=== PATIENT | female | born 1980 | race Caucasian/White ===

== ENCOUNTER 2019-01-14 23:57 | Emergency (ER) | payer OTHER ==
[~2019-01-14] VITALS: Ht 152.4 cm; Wt 80.7 kg
[2019-01-15 00:01] VITALS: BP 144/88
[2019-01-15 00:19] VITALS: BP 144/88
[2019-01-15] MEDS ORDERED: PREDNISONE PO STA (00:38)
[2019-01-15] MEDS ORDERED: BACTRIM DS PO STA (00:38)
[2019-01-15] MEDS ORDERED: BACTRIM DS ONE (00:45)
[2019-01-15] MEDS ORDERED: PREDNISONE ONE (00:46)
--- NOTE | 2019-01-15 00:49 | ER.PDOC ---
General Chief Complaint: Extremities Stated Complaint: POSS SPIDER BITE Time seen by MD: 00:41 Source: patient Exam Limitations: no limitations History of Present Illness Initial Comments Possible insect bite to left thigh 2-3 days ago Severity: moderate Location: LLE Quality: painful Identified Cause: possibly Allergies: Coded Allergies: No Known Allergies (Unverified , 11/05/18) Past Medical History Medical History: thyroid disease, other Surgical History: LMP (females 10-50): 3 weeks Social History Smoking: non-smoker Alcohol Use: occassionally Drug Use: none Constitutional: no symptoms reported Respiratory: no symptoms reported Cardiovascular: no symptoms reported Gastrointestinal: no symptoms reported Skin: see HPI All Other Systems: Reviewed and Negative Physical Exam General Appearance: alert, no distress Skin: tender indurated area, with erythema Location: LLE (mid posterior thigh) With: warmth, tenderness, swelling, inflammation 1 - redness, erytherma, inflammed Neck: trachea midline, no swelling Respiratory: no resp. distress, breath sounds nml CVS: reg. rate & rhythm, heart sounds nml Abdomen: non-tender, no organomegaly NEURO/PSYCH: oriented x 3, CN's nml as tested, motor nml, sensation nml, mood/affect nml Incision and Drainage Incision and Drainage : Site: left thigh Blade Size: 11 I & D Procedure: betadine prep, sterile dressing applied, gauze wick placed, irrigated cavity w/saline, culture/gram stain Results/Orders Results/Orders Orders - WEN STINSON MD Sulfamethoxazole/Trimethoprim (Bactrim D (01/15/19 00:38) Prednisone (Prednisone) (01/15/19 00:38) Sulfamethoxazole/Trimethoprim (Bactrim D (01/15/19 00:45) Prednisone (Prednisone) (01/15/19 00:46) Cbc With Auto Diff (01/15/19 00:48) Comprehensive Metabolic Panel (01/15/19 00:48) Blood Culture (01/15/19 00:48) Lidocaine Hcl (Lidocaine 1% Vial) (01/15/19 02:07) Neomycin/Bacitracin/Polymyxinb (Triple A (01/15/19 02:07) Vital Signs Date Time Temp Pulse Resp B/P (MAP) Pulse Ox O2 Delivery O2 Flow Rate FiO2 01/15/19 00:19 98.1 104 16 144/88 (106) 96 Room Air 01/15/19 00:01 98.1 104 16 01/15/19 00:01 98.1 104 16 96 Room Air Administered Medications Medications (Trade) Dose Ordered Sig/Claire Route PRN Reason Start Time Stop Time Status Last Admin Dose Admin Prednisone (Prednisone) 40 mg STAT STAT PO 01/15/19 00:38 01/15/19 00:39 DC 01/15/19 00:49 40 MG Trimethoprim/ Sulfamethoxazole (Bactrim Ds) 1 each STAT STAT PO 01/15/19 00:38 01/15/19 00:39 DC 01/15/19 00:49 1 EACH Laboratory Tests Test 01/15/19 01:10 White Blood Count 13.3 10^3/uL (4.5-11.0) H Red Blood Count 4.29 10^6/uL (4.00-5.20) Hemoglobin 12.7 g/dL (12.0-15.0) Hematocrit 37.8 % (36.0-46.0) Mean Corpuscular Volume 88.1 fL (78-100) Mean Corpuscular Hemoglobin 29.6 pg (26-34) Mean Corpuscular Hemoglobin Concent 33.6 g/dL (33-37) Red Cell Distribution Width 13.2 % (11.5-14.5) Platelet Count 296 10^3/uL (150-400) Mean Platelet Volume 9.8 fL (7.8-11.0) Neutrophils (%) (Auto) 76.9 % (41.0-85.0) Lymphocytes (%) (Auto) 10.9 % (24.0-44.0) L Monocytes (%) (Auto) 8.6 % (5.0-12.0) Neutrophils # (Auto) 10.2 10^3/uL (1.8-7.7) H Lymphocytes # (Auto) 1.5 10^3/uL (1.0-4.8) Monocytes # (Auto) 1.2 10^3/uL (0.3-0.8) H Absolute Immature Granulocyte (auto 0.04 10^3 u/L (0-2) Immature Granulocytes % 0.30 % (0.00-0.50) Eosinophils % 2.9 % (0.0-5.0) Basophils % 0.4 % (0.0-0.2) H Basophils # 0.1 10^3/uL (0.0-0.1) Eosinophil Count 0.4 10^3/uL (0.0-0.2) H Sodium Level 142 mmol/L (132-145) Potassium Level 3.8 mmol/L (3.6-5.2) Chloride Level 107.0 mmol/L (96-109) Carbon Dioxide Level 24.4 mmol/L (20.0-32) Anion Gap 14.4 Blood Urea Nitrogen 11 mg/dL (7-18) Creatinine 0.73 mg/dL (0.59-1.40) Estimated GFR () 107.4 (>/=60) BUN/Creatinine Ratio 15.0 Glucose Level 111 mg/dL (70-110) H Calcium Level 8.8 mg/dL (8.4-10.5) Total Bilirubin 0.4 mg/dL (0.2-1.0) Aspartate Amino Transferase (AST) 13 U/L (0-35) Alanine Aminotransferase (ALT) 22 U/L (12-78) Alkaline Phosphatase 78 U/L (50-136) Total Protein 6.8 g/dL (6.4-8.2) Albumin 3.4 g/dL (3.4-5.0) Globulin 3.4 Departure Time of Disposition: 00:43 Disposition: 01 HOME, SELF-CARE Impression: Primary Impression: Abscess or cellulitis of thigh Additional Impression: Insect bite Condition: Stable Referrals: PCP,UNKNOWN (PCP) PRIMARY CARE PROVIDER Additional Instructions: Bactrim DS Return tomorrow for dressing change Duration or Time Spent with Pa: 45 mins Problem Qualifiers Additional Impression: Insect bite Encounter type: initial encounter Site of insect bite: thigh Laterality: left Qualified Codes: S70.362A - Insect bite (nonvenomous), left thigh, initial encounter; W57.XXXA - Bitten or stung by nonvenomous insect and other nonvenomous arthropods, initial encounter WEN STINSON MD Jan 15, 2019 00:49
[2019-01-15 01:15] LABS: BASOPHIL # 0.1 10^3/uL (0.0-0.1); BASOPHIL % 0.4 % (0.0-0.2); EOSINOPHIL # 0.4 10^3/uL (0.0-0.2); EOSINOPHIL % 2.9 % (0.0-5.0); HEMOGLOBIN 12.7 g/dL (12.0-15.0); LYMPHOCYTES # 1.5 10^3/uL (1.0-4.8); LYMPHOCYTES % 10.9 % (24.0-44.0); MEAN CELL HGB 29.6 pg (26-34); MEAN CELL HGB CONCENTRATION 33.6 g/dL (33-37); MEAN CORP VOLUME 88.1 fL (78-100); MEAN PLATELET VOLUME 9.8 fL (7.8-11.0); MONOCYTES # 1.2 10^3/uL (0.3-0.8); MONOCYTES % 8.6 % (5.0-12.0); NEUTROPHIL # 10.2 10^3/uL (1.8-7.7); NEUTROPHILS % 76.9 % (41.0-85.0); RED CELL DISTRIBUTION WIDTH 13.2 % (11.5-14.5); WHITE BLOOD CELL 13.3 10^3/uL (4.5-11.0)
[2019-01-15 01:30] LABS: CALCIUM 8.8 mg/dL (8.4-10.5); CARBON DIOXIDE 24.4 mmol/L (20.0-32)
[2019-01-15] MEDS ORDERED: LIDOCAINE 1% VIAL ONE (02:07)
[2019-01-15] MEDS ORDERED: TRIPLE ANTIBIOTIC OINTMENT TP ONE (02:07)
--- NOTE | 2019-01-15 02:23 | NUR ---
DRESSING BEE STERILE GAUZE SECURED TO SITE WITH TAPE POST I & D OF WOUND. PT TOLERATED WELL.
== END 2019-01-15 02:31 | disposition home or self-care (01) ==
LOC: ER 23:57
DX: S70.362A Insect bite (nonvenomous), left thigh, initial encounter (principal); L03.116 Cellulitis of left lower limb; L02.416 Cutaneous abscess of left lower limb; W57.XXXA Bitten or stung by nonvenomous insect and other nonvenomous arthropods, initial encounter; Y93.89 Activity, other specified; Y92.89 Other specified places as the place of occurrence of the external cause; Y99.8 Other external cause status
CPT/HCPCS: 10060; 36415; 80053; 85025; 87040 ×2; 87070; 87077; 87186; 99284; J2001; J7512; 99283

== ENCOUNTER 2019-01-15 19:11 | Emergency (ER) | payer OTHER ==
[~2019-01-15] VITALS: Ht 162.6 cm; Wt 68.0 kg
[2019-01-15 19:24] VITALS: BP 176/94
[2019-01-15 19:28] VITALS: BP 176/94
[2019-01-15] MEDS ORDERED: TYLENOL PO STA (19:40)
[2019-01-15] MEDS ORDERED: TETANUS DIPHTHERIA TOXOIDS IM STA (19:40)
--- NOTE | 2019-01-15 19:42 | ER.PDOC ---
General Chief Complaint: Wound Recheck/Suture Removal Stated Complaint: WOUND CHECK Time seen by MD: 19:38 Source: patient Exam Limitations: no limitations History of Present Illness Allergies: Coded Allergies: No Known Allergies (Unverified , 11/05/18) Past Medical History Medical History: other (rheumatoid arthritis NOT on immunomodulators) Surgical History: Social History Smoking: non-smoker Alcohol Use: occassionally Drug Use: none All Other Systems: Reviewed and Negative Physical Exam General Appearance: alert Comments Left posterior thigh: no fluctuance appreciated, mild erythema/edema, mild TTP, no purulent discharge, area demarcated/dated w/ extension of erythema BEYOND demarcation, no lymphangitic streaking, wound packing dangling, no bleeding Results/Orders Results/Orders Orders - SANDIE CHARLTON MD Tetanus, Diphtheria Tox,Adult (Tetanus D (01/15/19 19:40) Acetaminophen (Tylenol) (01/15/19 19:40) Naproxen (Naproxen) (01/15/19 20:00) Diph,Pertuss(Acell),Tet Vac/Pf (Adacel V (01/15/19 19:43) Acetaminophen (Tylenol) (01/15/19 19:53) Naproxen (Naproxen) (01/15/19 19:54) Vital Signs Date Time Temp Pulse Resp B/P (MAP) Pulse Ox O2 Delivery O2 Flow Rate FiO2 01/15/19 19:28 98.4 88 16 176/94 (121) 98 Room Air 01/15/19 19:24 98.4 88 16 01/15/19 19:24 98.4 88 16 98 Room Air Administered Medications Medications (Trade) Dose Ordered Sig/Claire Route PRN Reason Start Time Stop Time Status Last Admin Dose Admin Acetaminophen (Tylenol) 1,000 mg STAT STAT PO 01/15/19 19:40 01/15/19 19:42 DC 01/15/19 19:52 1,000 MG Naproxen (Naproxen) 500 mg OT ONCE PO 01/15/19 20:00 01/15/19 20:01 DC 01/15/19 19:53 500 MG Course Sepsis Screening Results: Posi: POSITIVE SEPSIS RISK DATE SEEN BY PHYSICIAN: Jan 15, 2019 TIME SEEN BY PROVIDER: 19:00 Duration or Total Time Spent w: mins Vitals & review Data Vital Sign - Last 24 Hours 01/15/19 01/15/19 01/15/19 19:24 19:24 19:28 Temp 98.4 98.4 98.4 Pulse 88 88 88 Resp 16 16 16 B/P (MAP) 176/94 (121) Pulse Ox 98 98 O2 Delivery Room Air Room Air Sepsis Infection Criteria Pres: Suspected Infection O2 Sat by Pulse Oximetry: 98 Findings Pt findings consistent w/ wound re-packing, left posterior thigh cellulitis, failure outpatient treatment, or other. Examined the wound and pulled out previous packing and replaced with iodoform. Discussed the current TMP/SMX regimen and just started antibiosis. Discussed sensitive v. resistant and the possibility that bacteria are resistant to the TMP/SMX. Given iodoform and suture kit for home for to replace the packing q 24 hours. Given analgesics and tetanus booster as she is not currently up to date on same. Discharged home in good condition to f/u her primary as needed. Departure Time of Disposition: 19:48 Disposition: 01 HOME, SELF-CARE Impression: Primary Impression: Wound check, abscess Condition: Stable Referrals: YOVANI GARCIA (PCP) PRIMARY CARE PROVIDER Duration or Time Spent with Pa: 10 Return to Work/School Can a patient return to work?: Yes Can a patient return to school: Yes SANDIE CHARLTON MD Jan 15, 2019 19:42
[2019-01-15] MEDS ORDERED: ADACEL VIAL IM ONE (19:43)
[2019-01-15] MEDS ORDERED: TYLENOL PO ONE (19:53)
[2019-01-15] MEDS ORDERED: NAPROXEN PO ONE ×2 (19:54→20:00)
== END 2019-01-15 20:06 | disposition home or self-care (01) ==
LOC: ER 19:11
DX: L03.116 Cellulitis of left lower limb (principal)
CPT/HCPCS: 90471; 90714; 99283; A9150; 90715

== ENCOUNTER 2020-02-28 14:24 | Emergency (ER) | payer OTHER ==
[~2020-02-28] VITALS: Ht 152.4 cm; Wt 90.7 kg
[2020-02-28 14:38] VITALS: BP 163/104
--- NOTE | 2020-02-28 14:43 | NUR ---
ARRIVAL PATIENT ARRIVED TO [facility], C/O OF LEFT UPPER POSTERIOR THIGH POSSIBLE SPIDER BITE, WAS RECENTLY SEEN BY DOCTOR MADAY AND GIVEN CLINDAMYCIN X2 DAYS AGO, WENT TO SEE MADAY AGAIN TODAY AND WAS TOLD SHE WOULD HAVE TO PAY A DOCTOR'S VISIT, INSTEAD OF PAYING SHE CAME TO THE ED FOR EVAL. DOCTOR SHANTELL TO THE ROOM TO SEE PATIENT.
[2020-02-28] MEDS ORDERED: LIDOCAINE 1% VIAL ONE (14:48)
[2020-02-28 16:08] VITALS: BP 162/92
--- NOTE | 2020-02-28 16:09 | ER.PDOC ---
General Chief Complaint: Skin Rash/Abscess Stated Complaint: POSS SPIDER BITE LEFT UPPER THIGH Time seen by MD: 16:02 Source: patient Exam Limitations: no limitations History of Present Illness Initial Comments Possible spider bite left thigh for 5 days, patient saw her PCP 2 days and was started on Clindamycin. Severity: moderate Location: LLE Quality: painful Identified Cause: possibly Allergies: Coded Allergies: No Known Allergies (Unverified , 11/05/18) Past Medical History Medical History: thyroid disease, other Surgical History: , tonsillectomy, other Social History Alcohol Use: none Drug Use: none Constitutional: no symptoms reported EENTM: no symptoms reported Respiratory: no symptoms reported Cardiovascular: no symptoms reported Gastrointestinal: no symptoms reported Skin: see HPI All Other Systems: Reviewed and Negative Physical Exam General Appearance: alert, no distress Skin: abscess, tender indurated area Location: LLE (posterior medial thight) With: tenderness, swelling, inflammation 1 - EENT: eyes nml inspection, lips/gums nml, pharynx nml Neck: trachea midline, no swelling Respiratory: no resp. distress, breath sounds nml CVS: reg. rate & rhythm, heart sounds nml Abdomen: non-tender, no organomegaly NEURO/PSYCH: oriented x 3, CN's nml as tested, motor nml, sensation nml, mood/affect nml Incision and Drainage Incision and Drainage : Site: Left thight Blade Size: 11 I & D Procedure: betadine prep, pack with gauze, probe/break up loculation, irrigated cavity w/saline, culture/gram stain Results/Orders Results/Orders Orders - WEN STINSON MD Lidocaine Hcl (Lidocaine 1% Vial) (02/28/20 14:48) Vital Signs Date Time Temp Pulse Resp B/P (MAP) Pulse Ox O2 Delivery O2 Flow Rate FiO2 02/28/20 14:38 97.9 82 16 163/104 (123) 98 Room Air 02/28/20 14:38 97.9 82 16 02/28/20 14:38 97.9 82 16 98 ER DEPART Departure Time of Disposition: 16:08 Disposition: 01 HOME, SELF-CARE Impression: Primary Impression: Abscess Additional Impression: Cellulitis Condition: Stable Referrals: YOVANI GARCIA (PCP) PRIMARY CARE PROVIDER Additional Instructions: Continue Clindamycin Ibuprofen Return tomorrow or go to your PCP for dressing change. Duration or Time Spent with Pa: 20 min Problem Qualifiers Additional Impression: Cellulitis Site of cellulitis: extremity Site of cellulitis of extremity: lower extremity Laterality: left Qualified Codes: L03.116 - Cellulitis of left lower limb WEN STINSON MD Feb 28, 2020 16:09
== END 2020-02-28 16:12 | disposition home or self-care (01) ==
LOC: ER 14:51
DX: L02.416 Cutaneous abscess of left lower limb (principal); L03.116 Cellulitis of left lower limb; E07.9 Disorder of thyroid, unspecified
CPT/HCPCS: 10060; 87070; 87077; 87186; 99283; J2001

== ENCOUNTER 2020-08-18 19:10 | Emergency (ER) | payer OTHER ==
[~2020-08-18] VITALS: Ht 154.9 cm; Wt 80.7 kg
[2020-08-18 19:38] VITALS: BP 159/112
--- NOTE | 2020-08-18 19:43 | NUR ---
Pt presents with c/o headache and vomiting since yesterday at noon. States she has had 18 200mg ibuprofen in 29 hours.
[2020-08-18] MEDS ORDERED: BENADRYL IV STA (19:56)
[2020-08-18] MEDS ORDERED: COMPAZINE IV STA (19:56)
[2020-08-18] MEDS ORDERED: TORADOL IV ONE (20:00)
[2020-08-18] MEDS ORDERED: NS 1000ML 1,000 ML ONE (20:14)
--- NOTE | 2020-08-18 20:15 | NUR ---
Using aspetic technique 20 gauge IV inserted in right AC x 1 attempt, good blood flow, flushed with NS, secured with tegaderm and tape, patient tolerated well.
[2020-08-18] MEDS ORDERED: COMPAZINE ONE (20:24)
[2020-08-18] MEDS ORDERED: TORADOL ONE (20:24)
[2020-08-18] MEDS ORDERED: BENADRYL ONE (20:24)
[2020-08-18] MEDS ORDERED: NS 1000ML 1,000 ML IV ONE (20:30)
[2020-08-18 20:45] VITALS: BP 146/77
--- NOTE | 2020-08-18 21:32 | ER.PDOC ---
General Chief Complaint: Headache Stated Complaint: HEADACHE Time seen by MD: 19:15 Source: patient History of Present Illness Initial Comments 39-year-old female with history of migraines presents with complaint of headache for 2 days. She states she has been taking ibuprofen at home however it has not helped. She states she frequently has similar headaches however she is normally able to control them at home. She denies any fevers chills nausea vomiting neck stiffness rashes or any other complaints. There are no visual disturbances. Timing/Duration: other Allergies: Coded Allergies: No Known Allergies (Unverified , 11/05/18) Past Medical History Medical History: other Surgical History: tonsillectomy Social History Alcohol Use: rarely Drug Use: none Review of Systems Constitutional: no symptoms reported Eyes: no symptoms reported Respiratory: no symptoms reported Cardiovascular: no symptoms reported Gastrointestinal: no symptoms reported Musculoskeletal: no symptoms reported Psychiatric/Neurological: headache Physical Exam General Appearance: No Apparent Distress, WD/WN Head/Eyes: eyes nml inspection Cardiovascular: Regular Rate, Rhythm Respiratory: no respiratory distress Extremities: Normal Range of Motion Psychiatric: Alert, Oriented x 3 Skin: Warm/Dry, Normal Color Results/Orders Results/Orders Orders - MELISSA WOODS MD 0.9 % Sodium Chloride (Ns 1000ml) (08/18/20 20:30) Ketorolac Tromethamine (Toradol) (08/18/20 20:00) Diphenhydramine Hcl (Benadryl) (08/18/20 19:56) Prochlorperazine Edisylate (Compazine) (08/18/20 19:56) Diphenhydramine Hcl (Benadryl) (08/18/20 20:24) Ketorolac Tromethamine (Toradol) (08/18/20 20:24) Prochlorperazine Edisylate (Compazine) (08/18/20 20:24) Vital Signs Date Time Temp Pulse Resp B/P (MAP) Pulse Ox O2 Delivery O2 Flow Rate FiO2 08/18/20 20:45 68 18 146/77 (100) 96 08/18/20 19:38 98.9 75 18 97 08/18/20 19:38 98.9 75 18 08/18/20 19:38 98.9 75 18 159/112 (128) 97 Administered Medications Medications (Trade) Dose Ordered Sig/Claire Route PRN Reason Start Time Stop Time Status Last Admin Dose Admin Diphenhydramine HCl (Benadryl) 25 mg STAT STAT IV 08/18/20 19:56 08/18/20 20:13 DC 08/18/20 20:27 25 MG Ketorolac Tromethamine (Toradol) 15 mg OT ONCE IV 08/18/20 20:00 08/18/20 20:13 DC 08/18/20 20:25 15 MG Prochlorperazine Edisylate (Compazine) 10 mg STAT STAT IV 08/18/20 19:56 08/18/20 20:13 DC 08/18/20 20:31 10 MG Sodium Chloride 1,000 ml @ 999 mls/hr Q1H1M ONCE IV 08/18/20 20:30 08/18/20 21:30 UNV 08/18/20 20:20 999 MLS/HR Progress Progress Patient was given a headache cocktail of normal saline bolus, Toradol IV, Compazine and Benadryl. She states she is feeling much better and is ready to be discharged home. She is being given a prescription for ketorolac p.o. She has been instructed not to take ketorolac with any other NSAIDs. And patient should be following up with her primary care physician or neurologist for further evaluation and management. ER DEPART Departure Time of Disposition: 21:36 Disposition: 01 HOME / SELF CARE / HOMELESS Impression: Primary Impression: Migraine Condition: Stable Referrals: YOVANI GARCIA (PCP) PRIMARY CARE PROVIDER Duration or Time Spent with Pa: 10 min Return to Work/School Can a patient return to work?: Yes Can a patient return to school: Yes MELISSA WOODS MD August 18, 2020 21:32
== END 2020-08-18 21:40 | disposition home or self-care (01) ==
LOC: ER 19:10
DX: G43.909 Migraine, unspecified, not intractable, without status migrainosus (principal); Z79.1 Long term (current) use of non-steroidal anti-inflammatories (NSAID)
CPT/HCPCS: 96361; 96374; 96375; 99284; J0780; J1200; J1885; J7030

== ENCOUNTER → 2021-11-25 | Outpatient (CLI) | payer SELFPAY ==
[2021-11-25 17:11] LABS: BASOPHIL # 0.1 10^3/uL (0.0-0.1); EOSINOPHIL # 0.3 10^3/uL (0.0-0.2); EOSINOPHIL % 4.5 % (0.0-5.0); LYMPHOCYTES % 27.5 % (24.0-44.0); MEAN CORP HGB 28.9 pg (26-34); MONOCYTES # 0.5 10^3/uL (0.3-0.8); MONOCYTES % 7.6 % (5.0-12.0); NEUTROPHIL # 3.7 10^3/uL (1.8-7.7); NEUTROPHILS % 59.4 % (41.0-85.0); PLATELET COUNT 342 10^3/uL (150-400); RED CELL DISTRIBUTION WIDTH 12.8 % (11.5-14.5)
[2021-11-25 17:37] LABS: CARBON DIOXIDE 25.6 mmol/L (20.0-32)
== END | disposition home or self-care (01) ==
LOC: LAB 16:45
PROVIDERS: ATTEND Nurse Practitioner Adult Health
DX: M05.69 Rheumatoid arthritis of multiple sites with involvement of other organs and systems (principal)
CPT/HCPCS: 36415; 80053; 80061; 84439; 84443; 85025; 85651; 86038; 86225; 86235; 86256; 86431